=== PATIENT | female | born 1985 | race Caucasian/White ===

== ENCOUNTER 2018-03-21 00:35 | Outpatient (CLI) | payer MEDICARE, MEDICAID, SELFPAY ==
--- NOTE | 2018-03-21 11:28 | DI.MRI_ITS ---
SYMPTOM/DIAGNOSIS: LT SCIATICA, BACK PAIN, M54.32 MRI LUMBAR SPINE: Routine noncontrast examination was performed. There are no priors for comparison. At L5-S1, there is enlarged central disc herniation. It does appear to compress both the right and left S1 nerve roots. There is mild to moderate narrowing of the central spinal canal. There is bilateral narrowing of the neuroforaminal with impingement upon the exiting nerve roots. There is disc desiccation present. At L4-L5 there is disc desiccation and a moderate size central disc herniation. There does appear to be some impingement upon the left L5 nerve root. Degenerative changes of the facets are seen with mild narrowing of the central spinal canal. L3-L4, L2-L3, and L1-L2 show no focal disc herniation, central spinal canal or neuroforaminal stenosis. There is normal signal of the intervertebral discs. Apart from the degenerative end plate signal changes there is normal marrow signal. The conus medullaris has a normal appearance and location. IMPRESSION: 1. Large central disc herniation at L5-S1 compressing both the right and left as one nerve root. 2. Disc herniation at L4-L5 which appears to impinge upon the left L5 nerve root. 3. L4-5 and L5-S1 degenerative disc disease.
== END 2018-03-21 00:55 ==
PROVIDERS: PCP Nurse Practitioner Family; Visit Provider Nurse Practitioner Family
DX: M54.32 Sciatica, left side (principal); M54.5 Low back pain; M51.17 Intervertebral disc disorders with radiculopathy, lumbosacral region
CPT/HCPCS: 72148

== ENCOUNTER 2018-04-20 13:38 | Outpatient (CLI) | payer MEDICARE, MEDICAID, SELFPAY ==
[2018-04-20 13:45] VITALS: BP 128/78; PULSE 105; RESP 24; TEMP 37.1; O2SAT 98
--- NOTE | 2018-04-20 14:34 | DI.RAD_ITS ---
SYMPTOM/DIAGNOSIS: LUMBAR RADICULOPATHY C-ARM: Fluoroscopy Time: 59.3 sec 31.08 mGy Fluoroscopy was provided for guidance of a pain clinic injection. Please see procedure note for details.
--- NOTE | 2018-04-20 14:36 | PDOC.PAIN_ITS ---
Pain Clinic Procedure Note Current Active Problems Problem Status Onset Herniated intervertebral disc of lumbar spine Chronic EPIDURAL STEROID WITH CATHETER INJECTION PROCEDURE NOTE COMMENTS: Patient has a large herniated disc at L5-S1 with left radicular symptoms. Appears to be pressing on the S1 nerve.. YULIYA PEREYRA has been referred to the [facility] for lumbar epidural steroid injection. Patient was greeted by the nurse who verified patients name and . Patient was then taken to the fluoroscopy suite. Patient was interviewed and the medical record reviewed. There were no medical , pharmacologic, radiographic, or other structural contraindications to attempting fluoroscopically guided lumbar epidural steroid injection. Risks and expected side effects as well as potential benefits of the procedure were reviewed and voiced concerns addressed. The patient consent form was signed and witnessed. Standard time-out procedure was performed. Patient was placed in the prone position on the fluoroscopy table and automated blood pressure cuff and pulse oximeter applied. The skin entry point for entering/approaching the epidural space by a {initially at L5-S1. However when I got close to the epidural space patient had too much pain so this was aborted and changed to a caudal approach via the sacral hiatus } and marked. Following thorough chlorhexadine preparation of the skin and draping and 1% lidocaine infiltration of the skin entry point and subcutaneous tissues, a 17 gauge Touhy needle was placed under fluoroscopic guidance and with loss of resistance technique into the epidural space. Needle tip placement and depth were aided and confirmed by fluoroscopy. There was no paresthesia or return of blood or CSF through the needle. An Arrow cath was thread to the {L5 } and 1 cc's of Omnipaque 240 was injected with clear epidural spread confirmed with fluoroscopy. 80mg depomedrol was injected. There was not any unusual discomfort expressed. Vital signs were stable throughout the procedure and were as recorded in nursing records. Follow up plans and appointments were discussed.Post procedure instruction was given as documented in nursing records and having met discharge criteria and was discharged from the [facility]. COMMENTS: Patient will follow-up as needed. Consider repeating or consider transforaminal on the left at S1 and/or L5. Also consider using sedation if it needs to be repeated
[2018-04-20] MEDS: Omnipaque 240 MG/ML 50 ML BTL IJ (14:42)
[2018-04-20] MEDS: methylPREDNISolone ACETATE 40 MG/ML VIAL IJ (14:43)
[2018-04-20 14:44] VITALS: BP 143/78; PULSE 108; RESP 15; O2SAT 97
--- NOTE | 2018-04-20 15:39 | PDOC.PAIN ---
Pain Clinic Procedure Note Current Active Problems Problem Status Onset Herniated intervertebral disc of lumbar spine Chronic
== END 2018-04-20 13:58 ==
PROVIDERS: PCP Nurse Practitioner Family; Visit Provider Anesthesiology Pain Medicine
DX: M51.26 Other intervertebral disc displacement, lumbar region (principal); G89.29 Other chronic pain
CPT/HCPCS: 62323; 72100; J1030; Q9967

== ENCOUNTER 2018-07-19 12:47 | Outpatient (CLI) | payer MEDICARE, MEDICAID, SELFPAY ==
--- NOTE | 2018-07-19 06:00 | DI.RAD_ITS ---
SYMPTOM/DIAGNOSIS: LUMBAR RADICULOPATHY, EPIDURAL LUMBAR STEROID INJECTION C-ARM: Fluoroscopy Time: 21.8 seconds Fluoroscopy was provided for guidance with pain clinic spinal injection. Please see procedure note for details.
[2018-07-19 12:58] VITALS: BP 115/75; PULSE 95; RESP 22; TEMP 37.2; O2SAT 97
--- NOTE | 2018-07-19 13:47 | PDOC.PAIN ---
Pain Clinic Procedure Note Current Active Problems Problem Status Onset Lumbar radiculitis Acute CANDAL EPIDURAL STEROID WITH CATHETER INJECTION PROCEDURE NOTE COMMENTS: She has done better with the caudal approach in the past and that is why we used this approach. No prior lumbar surgery. YULIYA PEREYRA has been referred to the [facility] for lumbar epidural steroid injection. Patient was greeted by the nurse who verified patients name and . Patient was then taken to the fluoroscopy suite. Patient was interviewed and the medical record reviewed. There were no medical, pharmacologic, radiographic, or other structural contraindications to attempting fluoroscopically guided lumbar epidural steroid injection. Risks and expected side effects as well as potential benefits of the procedure were reviewed and voiced concerns addressed. The patient consent form was signed and witnessed. Standard time-out procedure was performed. Patient was placed in the prone position on the fluoroscopy table and automated blood pressure cuff and pulse oximeter applied. The skin entry point for entering/approaching the epidural space and marked. Following thorough chlorhexadine preparation of the skin and draping and 1% lidocaine infiltration of the skin entry point and subcutaneous tissues, a 17 gauge Touhy needle was placed under fluoroscopic guidance and with loss of resistance technique into the epidural space. Needle tip placement and depth were aided and confirmed by fluoroscopy. There was no paresthesia or return of blood or CSF through the needle. An Arrow cath was thread to the L4-L5 level and 1 cc's of Omnipaque 240 was injected with clear epidural spread confirmed with fluoroscopy. 80mg depomedrol was injected. There was not any unusual discomfort expressed. Vital signs were stable throughout the procedure and were as recorded in nursing records. Follow up plans and appointments were discussed.Post procedure instruction was given as documented in nursing records and having met discharge criteria and was discharged from the [facility]. COMMENTS: This procedure can be completed up to 3 times per 12 months if it is found to be effective.
[2018-07-19 13:50] VITALS: BP 138/74; PULSE 102; RESP 20; O2SAT 98
[2018-07-19] MEDS: methylPREDNISolone ACETATE 80 MG/ML VIAL IJ (13:52)
[2018-07-19] MEDS: Omnipaque 240 MG/ML 50 ML BTL IJ (13:52)
== END 2018-07-19 13:07 ==
PROVIDERS: PCP Nurse Practitioner Family; Visit Provider Preventive Medicine Occupational Medicine
DX: M54.16 Radiculopathy, lumbar region (principal)
CPT/HCPCS: 62323; 72100; J1040; Q9967

== ENCOUNTER 2019-06-16 09:05 | Emergency (ER) | payer MEDICARE, MEDICAID, SELFPAY ==
[2019-06-16 09:10] VITALS: BP 128/99; PULSE 87; RESP 16; TEMP 36.6; O2SAT 98
--- NOTE | 2019-06-16 09:14 | W.ED.GENAD ---
Discharge Plan Disposition Patient Disposition: HOME Condition: Stable Discharge Details Chief Complaint: EarProblem Clinical Impression: Acute otitis media with effusion of left ear, Tympanic membrane perforation Primary Care Provider: Elsie Ponce ED Provider: Kandi Albarado Home Meds and New Rx's Prescriptions: New amoxicillin 500 mg tablet 500 mg PO QID 7 Days Qty: 28 RF: 0 Continued Collagen Plus Vitamin C 125-740 mg capsule 1 cap PO DAILY RF: 0 Centrum Women 18-400 mg-mcg tablet 1 tab PO DAILY RF: 0 omega-3 fatty acids [Fish Oil Concentrate] 1,000 mg capsule 1,000 mg PO DAILY RF: 0 bupropion HCl [Wellbutrin XL] 300 mg tablet extended release 24 hr 300 mg PO QAM RF: 0 cyclobenzaprine 10 mg tablet 10 mg PO HS PRNRF: 0 nicotine 21 mg/24 hr patch 24 hour 1 patch TD DAILY RF: 0 lorazepam 0.5 mg tablet 0.5 mg PO DAILY PRN (Reason: panic attack(s)) RF: 0 albuterol sulfate [ProAir HFA] 90 mcg/actuation HFA aerosol inhaler 2 puff IH .COMPLEX PRNRF: 0 dextroamphetamine-amphetamine 20 mg capsule,extended release 24hr 20 mg PO DAILY RF: 0 metformin [Glucophage] 850 MG tablet 850 mg PO Q12H Qty: 180 RF: 4 acetaminophen [Tylenol] 325 MG tablet 650 mg PO PRN RF: 0 ibuprofen 200 MG capsule 800 mg PO PRN RF: 0 Discharge Instructions Instructions: Ruptured Eardrum (ED), Otitis Media (ED) Additional Instructions: Alternate tylenol and motrin as needed and directed for pain. Take the antibiotics until finished. Follow-up with your primary care doctor in 1 week. Follow-up with ENT for further evaluation as needed. Return to the emergency department with any worsening or new concerning symptoms. Referrals: Rudy Salazar DO [OSTEOPATHIC DOCTOR] - Discharge Data Discharge Physician: Kandi Albarado Medical Decision Making 34-year-old female presents with left ear pain for the past 5 days, slightly improved since her left eardrum popped 2 days ago. Since then she has had yellow bloody discharge from her left ear. She still admits to intermittent sharp pain and hearing loss. She denies any known fever, sore throat. She has been taking ibuprofen with some relief. She has a history of bilateral TM perforations and infections and has seen ENT in the past. She has an old scarred perforation to her right TM without signs of acute infection. Her left external ear is normal to inspection and palpation. There is yellowish discharge within the left ear canal as well as yellowish discoloration of the left TM with minimal erythema and perforation in center. Appears consistent with otitis media with effusion status post perforation. A prescription for amoxicillin given. She was advised to follow-up with her primary care doctor for reevaluation and with ENT as needed. She states she has seen Dr. Salazar as needed. Usual and customary return precautions given prior to discharge. Medical Records Medical records reviewed: Yes I reviewed the patient's medical records. HPI General Mode of arrival: ambulatory. Date/Time Provider Initiated Documentation: 06/16/19 09:12. Limitations to Documentation: no limitations. Information obtained by: patient. History of Present Illness 34 year old F presents to the emergency department with the chief complaint of L ear pain , described as moderate, Quality is described as aching and sharp, and is localized to the head. Patient reports no radiation. Patient started experiencing this day(s) (5) and it has been constant. Medication improves symptom(s), (some relief with ibuprofen) No exacerbating factors reported . Patient notes denies fever/chills and loss of appetite. Related Data Home Medications Medication Instructions Recorded Confirmed acetaminophen [Tylenol] 650 mg PO PRN 09/01/13 06/16/19 ibuprofen 800 mg PO PRN 09/01/13 06/16/19 metformin [Glucophage] 850 mg PO Q12H #180 tab-cap 05/19/17 06/16/19 albuterol sulfate 90 mcg/actuation 2 puff IH .COMPLEX PRN gm 04/05/18 06/16/19 aerosol inhaler bupropion HCl 300 mg 24 hr tablet, 300 mg PO QAM 04/05/18 06/16/19 extended release cyclobenzaprine 10 mg tablet 10 mg PO HS PRN tab 04/05/18 06/16/19 dextroamphetamine-amphetamine ER 20 mg PO DAILY 04/05/18 06/16/19 20 mg 24hr capsule,extend release lorazepam 0.5 mg tablet 0.5 mg PO DAILY PRN 04/05/18 06/16/19 nicotine 21 mg/24 hr daily 1 patch TD DAILY 04/05/18 07/19/18 transdermal patch ascorbic acid 125 mg-collagen, 1 cap PO DAILY cap 04/13/18 06/16/19 hydrolyzed 740 mg capsule multivitamin-ferrous 1 tab PO DAILY 04/13/18 06/16/19 fumarate-folic acid 18 mg-400 mcg tablet omega-3 fatty acids 1,000 mg 1,000 mg PO DAILY 04/13/18 06/16/19 capsule amoxicillin 500 mg PO QID 7 Days #28 tab 06/16/19 Previous Rx's Medication Instructions Recorded metformin [Glucophage] 850 mg PO Q12H #180 tab-cap 05/19/17 amoxicillin 500 mg PO QID 7 Days #28 tab 06/16/19 Allergies Allergy/AdvReac Type Severity Reaction Status Date / Time lithium Allergy Intermediate Skin Rash Unverified 06/16/19 09:14 General Stated Complaint: EarProblem GLENN: 5 Review of Systems All systems reviewed & are unremarkable except as noted in HPI and below Constitutional Constitutional: Reports as per HPI, Denies chills and Denies fever(s) Eyes Eyes: Denies blurry vision ENT Ears, Nose, Mouth, and Throat: Denies dizziness, Reports otalgia (L side), Denies sore throat and Denies throat swelling Cardiovascular Cardiovascular: Denies chest pain and Denies dyspnea Respiratory Respiratory: Denies cough and Denies dyspnea Gastrointestinal Gastrointestinal: Denies abdominal pain, Denies diarrhea and Denies vomiting Genitourinary Genitourinary: Denies hematuria and Denies dysuria Musculoskeletal Musculoskeletal: Denies back pain and Denies numbness Integumentary/Breasts Skin/Breast: Denies lesions and Denies rash Neurologic Neurologic: Denies dizziness, Denies focal weakness and Denies numbness Allergic/Immunologic Allergic/Immunologic: Denies throat swelling [facility] Medical History Anxiety Attention deficit hyperactivity disorder Depression (Chronic) Elevated LFTs (Acute) Endometriosis (Chronic) Fatigue (Acute) Fatty liver Kidney stone (~2010) Mood disorder Obesity (Chronic) Polycystic ovarian syndrome (Acute) Sciatica, left side (Acute) Sleep disturbance (Acute) Tobacco dependence (Acute) Surgical History section (12/31/04) section (11/24/10) Diagnostic Laproscopy (03/01/11) H/O: hysterectomy (Chronic) Family History Other Attention deficit hyperactivity disorder Diabetes Social History Smoking/Tobacco Use Status: Current every day Alcohol Intake: never Drug use: Never Substance use type: does not use Housing: house Number of Children: 2 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 What type of physical activity do you participate in: none and additional Details: cannot walk more than the trips to the bus stop for kids Do you feel safe at home: Yes Do you feel safe in your relationship?: Yes Exam Const General: cooperative, healthy appearing and no acute distress HENMT Head: normal to inspection Ears: hearing grossly normal bilaterally and external ears normal (no pain with pulling of auricle or palpation of tragus) General nose exam: external nose normal Mouth: oral mucosae normal Throat: posterior oropharynx normal and uvula midline Other: Right ear: TM with center hole consistent with perforation. No signs of acute infection. Left ear: No tenderness palpation of tragus or pain with pulling on auricle. Yellow-pink discharge noted on cotton ball within left ear. Left ear canal noted with clear yellowish drainage. TM with center hole noted with minimal erythema, most of the TM appears yellowish in color. Difficult to view entire TM due to fluid. Eyes General: appearance normal, both eyes and all related structures Neck Neck: normal visual inspection, full ROM, no lymphadenopathy, no meningeal signs, trachea midline, supple, no anterior neck swelling and No submandibular swelling Resp Effort & Inspection: normal respiratory effort and able to speak in complete sentences Cardio Rate: regular rate Skin General skin exam: no rashes or lesions noted Neuro General: alert, awake and oriented x3 Motor: muscle tone normal throughout Extrem General: normal to inspection and full ROM Psych Appearance: grossly normal Affect: normal affect Course Vital Signs Vital signs: Vital Signs Temperature 97.9 F 06/16/19 09:10 Pulse 87 06/16/19 09:10 Respiratory Rate 16 06/16/19 09:10 Blood Pressure 128/99 H 06/16/19 09:10 Pulse Oximetry 98 06/16/19 09:10 Temperature 97.9 F 06/16/19 09:10 Temperature Source Skin 06/16/19 09:10 Pulse 87 06/16/19 09:10 Respiratory Rate 16 06/16/19 09:10 Respiratory Effort Non-Labored 06/16/19 09:12 Blood Pressure 128/99 H 06/16/19 09:10 Blood Pressure Position Sitting 06/16/19 09:10 Pulse Oximetry 98 06/16/19 09:10 Oxygen Delivery Method Room Air 06/16/19 09:10 Oxygen Flow Rate 0 06/16/19 09:10 Pain Level 2 06/16/19 09:12
[2019-06-16 09:31] VITALS: BP 128/99; PULSE 87; RESP 16; TEMP 36.6; O2SAT 98
== END 2019-06-16 09:33 | disposition home or self-care (01) ==
LOC: ER 09:24
PROVIDERS: Emergency Provider Physician Assistant; PCP Nurse Practitioner Family
DX: H65.192 Other acute nonsuppurative otitis media, left ear (principal); H72.02 Central perforation of tympanic membrane, left ear
CPT/HCPCS: 99283

== ENCOUNTER 2019-07-03 22:28 | Outpatient (REF) | payer MEDICARE, MEDICAID, SELFPAY ==
[2019-07-03 20:26] LABS: ALT 144 U/L (14-59); AST 71 U/L (15-37); Albumin 4.1 g/dL (3.4-5.0); Alkaline Phosphatase 70 U/L (46-116); Anion Gap 13.4 mmol/L (3-11); BUN 5 mg/dL (7-18); Bilirubin, Total 0.3 mg/dL (0.2-1.0); CO2 23.6 mmol/L (21.0-32.0); CREATININE 0.71 mg/dL (0.55-1.02); Calcium 8.9 mg/dL (8.5-10.1); Chloride 106 mmol/L (98-107); Glucose 87 mg/dL (74-106); Potassium 4.2 mmol/L (3.5-5.1); Sodium 143 mmol/L (136-145); TSH (W/Ref FT4) 2.31 uIU/mL (0.36-3.74); Total Protein 7.1 g/dL (6.4-8.2)
== END 2019-07-03 22:48 ==
LOC: NCHCN 22:28
PROVIDERS: PCP Nurse Practitioner Family; Visit Provider Nurse Practitioner Family
DX: R79.89 Other specified abnormal findings of blood chemistry (principal); Z98.41 Cataract extraction status, right eye; E11.9 Type 2 diabetes mellitus without complications
CPT/HCPCS: 80053; 84443

== ENCOUNTER 2020-08-04 17:08 | Emergency (ER) | payer MEDICARE, MEDICAID, SELFPAY ==
[2020-08-04 17:16] VITALS: BP 119/85; PULSE 92; RESP 18; TEMP 36; O2SAT 98
[2020-08-04 17:17] VITALS: BP 119/85; PULSE 92; RESP 18; TEMP 36; O2SAT 98
--- NOTE | 2020-08-04 17:32 | ED.GENADUL_ITS ---
Discharge Plan Disposition Patient Disposition: HOME Condition: Improving Discharge Details Clinical Impression: Odontalgia Primary Care Provider: Elsie Ponce ED Provider: Georges Fountain Home Meds and New Rx's Prescriptions: New penicillin V potassium 500 mg tablet 500 mg PO TID 10 Days Qty: 30 RF: 0 Continued Collagen Plus Vitamin C 125-740 mg capsule 1 cap PO DAILY RF: 0 Centrum Women 18-400 mg-mcg tablet 1 tab PO DAILY RF: 0 omega-3 fatty acids [Fish Oil Concentrate] 1,000 mg capsule 1,000 mg PO DAILY RF: 0 bupropion HCl [Wellbutrin XL] 300 mg tablet extended release 24 hr 300 mg PO QAM RF: 0 cyclobenzaprine 10 mg tablet 10 mg PO HS PRNRF: 0 nicotine 21 mg/24 hr patch 24 hour 1 patch TD DAILY RF: 0 lorazepam 0.5 mg tablet 0.5 mg PO DAILY PRN (Reason: panic attack(s)) RF: 0 albuterol sulfate [ProAir HFA] 90 mcg/actuation HFA aerosol inhaler 2 puff IH .COMPLEX PRNRF: 0 dextroamphetamine-amphetamine 20 mg capsule,extended release 24hr 20 mg PO DAILY RF: 0 metformin [Glucophage] 850 MG tablet 850 mg PO Q12H Qty: 180 RF: 4 acetaminophen [Tylenol] 325 MG tablet 650 mg PO PRN RF: 0 ibuprofen 200 MG capsule 800 mg PO PRN RF: 0 Discharge Instructions Instructions: Toothache (ED) Additional Instructions: Please make a follow-up appointment with [facility]. Return for increased swelling of the face, difficulty breathing or swallowing, or any other acute concerns. May use dental wax as needed for comfort. Take penicillin as prescribed. Tylenol and/or ibuprofen as needed for pain. Medical Decision Making 35-year-old female with odontalgia. Her exam reveals numerous dental caries and tenderness overlying tooth #28. Consistent with developing apical infection. She needs to follow-up with hard with dental. I will place her on a course of penicillin. She is stable for outpatient management and understands indications to seek reevaluation in the emergency department. HPI General Mode of arrival: ambulatory . Date/Time Provider Initiated Documentation: 08/04/20 17:08 . Limitations to Documentation: no limitations . Information obtained by: patient . History of Present Illness 35 year old F presents to the emergency department with the chief complaint of Right lower dental pain, described as moderate, Quality is described as dull, and is localized to the mouth and right. Patient reports no radiation. Patient started experiencing this hour(s) and it has been constant. No relieving factors improve symptom(s), No exacerbating factors reported . Patient did receive the following treatments prior to arrival, none Related Data Home Medications Medication Instructions Recorded Confirmed acetaminophen [Tylenol] 650 mg PO PRN 09/01/13 08/04/20 ibuprofen 800 mg PO PRN 09/01/13 08/04/20 metformin [Glucophage] 850 mg PO Q12H #180 tab-cap 05/19/17 08/04/20 albuterol sulfate 90 mcg/actuation 2 puff IH .COMPLEX PRN gm 04/05/18 08/04/20 aerosol inhaler bupropion HCl 300 mg 24 hr tablet, 300 mg PO QAM 04/05/18 08/04/20 extended release cyclobenzaprine 10 mg tablet 10 mg PO HS PRN tab 04/05/18 08/04/20 dextroamphetamine-amphetamine ER 20 mg PO DAILY 04/05/18 08/04/20 20 mg 24hr capsule,extend release lorazepam 0.5 mg tablet 0.5 mg PO DAILY PRN 04/05/18 08/04/20 nicotine 21 mg/24 hr daily 1 patch TD DAILY 04/05/18 08/04/20 transdermal patch ascorbic acid 125 mg-collagen, 1 cap PO DAILY cap 04/13/18 08/04/20 hydrolyzed 740 mg capsule multivitamin-ferrous 1 tab PO DAILY 04/13/18 08/04/20 fumarate-folic acid 18 mg-400 mcg tablet omega-3 fatty acids 1,000 mg 1,000 mg PO DAILY 04/13/18 08/04/20 capsule penicillin V potassium 500 mg PO TID 10 Days #30 tab 08/04/20 Previous Rx's Medication Instructions Recorded metformin [Glucophage] 850 mg PO Q12H #180 tab-cap 05/19/17 penicillin V potassium 500 mg PO TID 10 Days #30 tab 08/04/20 Allergies Allergy/AdvReac Type Severity Reaction Status Date / Time lithium Allergy Intermediate Skin Rash Unverified 06/16/19 09:14 General Stated Complaint: DentalOral GLENN: 4 Review of Systems Narrative: No change to voice, normal swallowing, 4 systems reviewed and otherwise negative [facility] Medical History (Updated 08/04/20 @ 17:35 by Georges Fountain MD) Anxiety Attention deficit hyperactivity disorder Depression Elevated LFTs Endometriosis Fatigue Fatty liver Kidney stone (~2010) Mood disorder Obesity Polycystic ovarian syndrome Sciatica, left side Sleep disturbance Tobacco dependence Surgical History section (12/31/04) section (11/24/10) Diagnostic Laproscopy (03/01/11) H/O: hysterectomy Family History Other Attention deficit hyperactivity disorder Diabetes Social History Smoking/Tobacco Use Status: Current every day Smoking risk assessment performed?: Yes Alcohol Intake: never Drug use: Never Substance use type: does not use Housing: house Number of Children: 2 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 Pleasant, well groomed, interactive. HEAD: Normocephalic, atraumatic ENT: Mucous membranes moist, oropharynx with missing and partially broken teeth with dental caries. Tender right lower premolar approximately tooth #28, External ear exam unremarkable EYES: PERRL, EOMI NECK: Full ROM, no LIDA, no menigismus CHEST/RESP: Nontender, clear to auscultation bilateral, no wheeze/rhonchi/rales CARDIOVASCULAR: RRR, no murmur, rub rosi. 2+ Rad pulse bilateral Neuro: Grossly normal neurologic exam, conversant, interactive. Psych: Speech fluent, thoughts congruent, affect normal Course Vital Signs Vital signs: Vital Signs Temperature 36 C L 08/04/20 17:16 Pulse 92 H 08/04/20 17:16 Respiratory Rate 18 08/04/20 17:16 Blood Pressure 119/85 08/04/20 17:16 Pulse Oximetry 98 08/04/20 17:16 Temperature 36 C L 08/04/20 17:17 Temperature Source Temporal Artery Scan 08/04/20 17:17 Pulse 92 H 08/04/20 17:17 Respiratory Rate 18 08/04/20 17:17 Respiratory Effort Non-Labored 08/04/20 17:21 Blood Pressure 119/85 08/04/20 17:17 Pulse Oximetry 98 08/04/20 17:17 Oxygen Delivery Method Room Air 08/04/20 17:17 Oxygen Flow Rate 0 08/04/20 17:17 Pain Level 5 08/04/20 17:22
[2020-08-04] MEDS: Penicillin V POTASSIUM 500 MG TAB, 4 TABS/BTL PO (17:42)
== END 2020-08-04 17:40 | disposition home or self-care (01) ==
PROVIDERS: Emergency Provider Emergency Medicine; PCP Nurse Practitioner Family
DX: R68.84 Jaw pain (principal)
CPT/HCPCS: 99283

== ENCOUNTER 2021-12-25 15:34 | Outpatient (REF) | payer MEDICARE, MEDICAID, SELFPAY ==
[2021-12-25 15:12] LABS: ALT 102 U/L (14-59); AST 49 U/L (15-37); Albumin 4.1 g/dL (3.4-5.0); Alkaline Phosphatase 62 U/L (46-116); Anion Gap 9.7 mmol/L (3-11); BUN 8 mg/dL (7-18); Bilirubin, Total 0.3 mg/dL (0.2-1.0); CO2 27.3 mmol/L (21.0-32.0); CREATININE 0.7 mg/dL (0.55-1.02); Calcium 8.8 mg/dL (8.5-10.1); Calculated LDL 159 mg/dL (<100); Chloride 106 mmol/L (98-107); Cholesterol 222 mg/dL (<200); Glucose 99 mg/dL (74-106); HDL Cholesterol 43 mg/dL (40-60); Potassium 3.7 mmol/L (3.5-5.1); Sodium 143 mmol/L (136-145); Total Protein 7.4 g/dL (6.4-8.2); Triglyceride 102 mg/dL (<150)
== END 2021-12-25 15:35 | disposition home or self-care (01) ==
LOC: NCHCN 15:34
PROVIDERS: PCP Nurse Practitioner Family; Visit Provider Nurse Practitioner Family
DX: E78.5 Hyperlipidemia, unspecified (principal); R79.89 Other specified abnormal findings of blood chemistry
CPT/HCPCS: 80053; 80061

== ENCOUNTER → 2022-03-12 02:36 | Outpatient (CLI) | payer MEDICARE, MEDICAID, SELFPAY ==
--- NOTE | 2022-03-12 09:00 | ETT_ITS ---
APPROVED REPORT Exam: Exercise Treadmill Patient Location: Out-Patient Room/Bed: Stress Nurse: Marlene Rogers RN Ordering Provider:KAITY BOWMAN, Contact Number: [phone] BMI: 37.49 Baseline Rhythm: Sinus Rhythm Indications: Exertional chest pain. Medical History Medical History: pre-diabetes. Lumbar disc herniation. non etoh fatty liver. depression. Degenerative disc disease. Hyperlipidemia. ADHD. Hepatic steatosis. anxiety. mood disorder. endometriosis. Obesit y. Cardiac Medications: None Allergies: [place] Cardiac Risk Factors: Family hx. Smoker. HLD. Obesity. Previous Cardiac Procedures: None Pretest Chest Pain Characteristics: No chest pain Exercise History: Physically active Lung Sounds: Clear to auscultation Heart Sounds: Regular Stress Test Details Test: Exercise stress testing was performed using a Alfonso protocol. Rest Stress HR Resting HR Supine: 82 bpm Max Heart Rate (APMHR): 186 bpm Resting HR Standin bpm Target HR (85% APMHR): 158 bpm Max HR Achieved: 174 bpm % of APMHR: 93 Recovery HR: 97 bpm HR response to stress: Normal HR response to stress BP Resting BP Supine: 102/70 mmHg Resting BP Standin/66 mmHg Max BP: 138/58 mmHg Recovery BP: 119/70 mmHg BP response to stress: Normal blood pressure response to stress. ECG Resting ECG: Sinus Rhythm Ectopy: None Stress ECG: Sinus Tachycardia ST Change: No significant ST segment changes noted Arrhythmia: VPC's Recovery ECG: Sinus Rhythm Recovery ST Change: No significant ST segment changes noted Recovery Arrhythmia: None Clinical Reason for Termination: Dyspnea, Fatigue Stress Symptoms: Dyspnea, Leg Fatigue, Chest pain Exercise duration: 9 min59 sec Highest Stage Reached: Stage 4: 4.2 mph at 16% grade. Exercise capacity: 11.80 METs Scale: Active Rate Pressure Product: [id number] Stress ECG Conclusion 1. Resting electrocardiogram was within normal limits 2. Patient exercised on the Alfonso protocol and completed a workload of 11.8 METS 3. Normal heart rate and blood pressure response to exercise 4. Patient achieved 93% of predicted heart rate for age 5. There was no electrocardiographic evidence of myocardial ischemia 6. There were no significant dysrhythmias 7. Gibbons treadmill score is +7 which is low risk Stress Test Summary STAGE Time (mins) Speed (mph) Grade (%) HR BP SpO2 SYMPTOMS METS Supine 82 102/70 97 Standing 92 96/66 97 1 3 1.7 10 113 102/70 4.5 2 6 2.5 12 126 112/64 7 3 9 3.4 14 146 120/68 10 4 12 4.2 16 160 13 1 min recovery 154 112/60 4 out of 10 left chest pain 3 min recovery 115 138/58 96 6 min recovery 97 119/70 96 Chest pain subsided.
== END ==
PROVIDERS: PCP Nurse Practitioner Family; Visit Provider Nurse Practitioner Family
DX: R07.89 Other chest pain (principal)
CPT/HCPCS: 93016; 93018; 93017

== ENCOUNTER 2022-07-24 00:47 | Outpatient (CLI) | payer MEDICARE, MEDICAID, SELFPAY ==
--- NOTE | 2022-07-24 | DI.MRI_ITS ---
Exam(s) MR LUMBAR SPINE WO EXAM: MR LUMBAR SPINE WO CLINICAL HISTORY: HERNIATED LUMBAR DISK W/ RADICULOPATHY, M51.16. TECHNIQUE: Multiplanar multisequence MRI of the Lumbar spine was performed. COMPARISON: MR MR lumbar spine wo from 03/21/2018 FINDINGS: Bones: The last intervertebral disc space is designated the L5/S1 level for the numbering purpose of this examination. The vertebral body heights are well maintained. Alignment is satisfactory. There are degenerative endplate signal changes at L4-5 and L5-S1. Cord: The conus tip ends at the T12-L1 level. It is of normal size and signal intensity. T12-L1: No disc herniations or bulges are present. No central spinal canal or neural foraminal stenos is. L1-2: No disc herniations or bulges are present. No central spinal canal or neural foraminal stenosis . L2-3: No disc herniations or bulges are present. No central spinal canal or neural foraminal stenosis . L3-4: No disc herniations or bulges are present. No central spinal canal or neural foraminal stenosis . L4-5: There is a slightly eccentric to the left disc herniation at L4-L5. There are degenerative chacorta nges of the facets. There is mild narrowing of the central spinal canal. There does appear to be mi ld left lateral recess stenosis compressing the left L5 nerve root. No significant neural foraminal stenosis is present. L5-S1: There is again seen a central disc herniation at L5-S1. It is decreased in size compared to t he prior examination. No central spinal canal stenosis is seen. There is moderate bilateral neural foraminal stenosis. Degenerative changes of the facets are present. Soft tissues: The visualized SI joints and sacrum are well maintained. The paraspinal soft tissues ar e unremarkable. IMPRESSION: 1. There has been interval decrease in size of the L5-S1 central disc herniation. No significant jensen tral spinal canal stenosis is seen. 2. Small left paracentral disc herniation at L4-L5. There does appear to be mild left lateral recess stenosis with compression of the left L5 nerve root. 3. Degenerative changes at L4-5 and L5-S1. The findings do result in moderate bilateral neural aleisha inal stenosis at L5-S1. DATA REPOSITORY:
== END 2022-07-24 01:07 ==
LOC: DI 00:47
PROVIDERS: PCP Nurse Practitioner Family; Visit Provider Nurse Practitioner Family
DX: M51.16 Intervertebral disc disorders with radiculopathy, lumbar region (principal); M51.27 Other intervertebral disc displacement, lumbosacral region; M47.817 Spondylosis without myelopathy or radiculopathy, lumbosacral region; M48.07 Spinal stenosis, lumbosacral region
CPT/HCPCS: 72148

== ENCOUNTER 2023-01-12 13:20 | Outpatient (REF) | payer MEDICARE, MEDICAID, SELFPAY ==
[2023-01-12 16:06] LABS: Abs Immature Grans 0.02 10^3/uL (0.0-0.06); Absolute Basophil Count 0.07 10^3/uL (0.0-0.2); Absolute Eosinophil Count 0.15 10^3/uL (0.0-0.7); Absolute Lymphocyte Count 2.93 10^3/uL (1.2-3.4); Absolute Monocyte Count 0.57 10^3/uL (0.1-0.8); Absolute Neutrophil Count 3.73 10^3/uL (1.2-6.7); Basophils % 0.9; HCT 41.8 % (36.0-46.0); HGB 14.4 g/dL (11.2-15.7); Immature Grans % 0.3; Lymphocytes % 39.2; MCH 31.3 pg (27.0-33.0); MCHC 34.4 % (32.0-36.0); MCV 91 fL (80-95); Monocytes % 7.6; Platelet Count 354 10^3/uL (130-400); RDW 12.4 % (11.7-14.6); RDW-SD 41.1 fL; WBC 7.47 10^3/uL (4.4-10.8)
[2023-01-12 16:39] LABS: Anion Gap 11.9 mmol/L (3-11); BUN 4 mg/dL (7-18); CO2 22.1 mmol/L (21.0-32.0); CREATININE 0.7 mg/dL (0.55-1.02); Chloride 104 mmol/L (98-107); Estimated GFR 115.59 (mL/min/1.73m2); Glucose 91 mg/dL (74-106); Potassium 3.6 mmol/L (3.5-5.1); Sodium 138 mmol/L (136-145)
== END 2023-01-12 13:21 | disposition home or self-care (01) ==
LOC: NCHCN 13:20
PROVIDERS: PCP Nurse Practitioner Family; Visit Provider Nurse Practitioner Family
DX: Z01.818 Encounter for other preprocedural examination (principal)
CPT/HCPCS: 80048; 85025

== ENCOUNTER 2023-04-27 15:33 | Outpatient (REF) | payer MEDICARE, MEDICAID, SELFPAY ==
[2023-04-27 19:45] LABS: Hemoglobin A1C 5.5 % (<5.7)
[2023-04-27 19:53] LABS: ALT 131 U/L (14-59); AST 80 U/L (15-37); Alkaline Phosphatase 80 U/L (46-116); Anion Gap 10.6 mmol/L (3-11); BUN 5 mg/dL (7-18); Bilirubin, Total 0.4 mg/dL (0.2-1.0); CO2 28.4 mmol/L (21.0-32.0); CREATININE 0.7 mg/dL (0.55-1.02); Calcium 9.3 mg/dL (8.5-10.1); Calculated LDL 151 mg/dL (<100); Chloride 102 mmol/L (98-107); Cholesterol 227 mg/dL (<200); Estimated GFR 115.59 (mL/min/1.73m2); Glucose 93 mg/dL (74-106); HDL Cholesterol 53 mg/dL (40-60); Potassium 3.7 mmol/L (3.5-5.1); Sodium 141 mmol/L (136-145); TSH 2.55 uIU/mL (0.36-3.74); Total Protein 7.3 g/dL (6.4-8.2); Triglyceride 117 mg/dL (<150)
[2023-04-27 20:50] LABS: FREE T4 0.86 ng/dL (0.76-1.46)
== END 2023-04-27 15:34 | disposition home or self-care (01) ==
LOC: NCHCN 15:33
PROVIDERS: PCP Nurse Practitioner Family; Visit Provider Nurse Practitioner Family
DX: Z68.41 Body mass index [BMI] 40.0-44.9, adult (principal); E66.9 Obesity, unspecified
CPT/HCPCS: 80053; 80061; 83036; 84439; 84443

== ENCOUNTER 2023-09-30 05:29 | Outpatient (CLI) | payer MEDICARE, MEDICAID, SELFPAY ==
--- NOTE | 2023-10-05 12:23 | W.NUTRFU ---
Date of service: 09/30/23 Time of Service: 13:00 Nutrition Note NOTE: received nutrition referral for Darshana regarding increased BMI and comes in for weight mgt guidance. Darshana takes a multivitamin but admits she is not consistent. Upon interview her eating pattern is not consistent. She relates she struggles with time mgt barriers. She is busy at home living with fiance of 14 years, 2 children and her niece. Dinner is the family meal - outside of this she is pretty indepenent at her meals and snacks. She currently has not idea framework to work towards and shares that she doesn't feel she eats often or too much - often skips breakfast and eats only 1 large meal. She has a history of PCOS which acts as a barrier and suspected ARMAND which would also increase difficult with wt loss. We reveiwed how habits should be focused on first - no need to get mediculous with tracking kcals and such at this time. She was given advice today to work on tackling the lowest hanging fruit which would be getting good quality sleep, trying to manage stress, having scheduled/targeted activity and exercise (she does not exercise currently), and working on some needed diet changes, considering the following as priorities: * creating a framework for what the ideal day of eating looks like (suggested at least 3 meals and 0-2 planned snacks with goal to stop eating after dinner meal) *avoiding skipping breakfast - eat more during the day and less at night *track and keep added sugar amounts to <30 g per day on average *track and keep fiber at at least 25g most days *swap some animal protein for plant protein from beans/legumes/nuts and seeds *choose [id number] starches and keep total carbs to no more than 150grams (this includes fiber goal of 25 or more grams) *work on drinking 2L water regularly and avoid any sweetened beverages and/or juice for accountability and extra support Darshana asked to ryann follow up - we will talk about the above goals at this time on 11/03 Time Spent in Nutritional Counseling and Treatment: 30 minutes
== END 2023-09-30 05:30 | disposition home or self-care (01) ==
PROVIDERS: PCP Nurse Practitioner Family; Visit Provider Dietitian, Registered
DX: Z68.41 Body mass index [BMI] 40.0-44.9, adult (principal); E66.9 Obesity, unspecified
CPT/HCPCS: 00123; 97802

== ENCOUNTER 2023-12-09 11:08 | Outpatient (REF) | payer MEDICARE, MEDICAID, SELFPAY ==
[2023-12-09 18:51] LABS: Hemoglobin A1C 5.6 % (<5.7)
[2023-12-09 19:00] LABS: ALT 126 U/L (14-59); AST 69 U/L (15-37); Albumin 3.7 g/dL (3.4-5.0); Alkaline Phosphatase 67 U/L (46-116); Anion Gap 10.6 mmol/L (3-11); BUN 8 mg/dL (7-18); Bilirubin, Total 0.32 mg/dL (0.2-1.0); CO2 24.4 mmol/L (21.0-32.0); CREATININE 0.7 mg/dL (0.55-1.02); Calcium 8.9 mg/dL (8.5-10.1); Chloride 107 mmol/L (98-107); Estimated GFR 114.88 (mL/min/1.73m2); Glucose 97 mg/dL (74-106); Potassium 4.1 mmol/L (3.5-5.1); Sodium 142 mmol/L (136-145); TSH (W/Ref FT4) 0.85 uIU/mL (0.36-3.74); Total Protein 7.1 g/dL (6.4-8.2)
== END 2023-12-09 11:09 | disposition home or self-care (01) ==
LOC: NCHCN 11:08
PROVIDERS: PCP Nurse Practitioner Family; Visit Provider Nurse Practitioner Family
DX: Z68.41 Body mass index [BMI] 40.0-44.9, adult (principal); E66.9 Obesity, unspecified
CPT/HCPCS: 80053; 83036; 84443

== ENCOUNTER 2024-02-08 13:38 | Outpatient (REF) | payer MEDICARE, MEDICAID, SELFPAY ==
[2024-02-08 19:33] LABS: ALT 231 U/L (14-59); AST 167 U/L (15-37); Alkaline Phosphatase 93 U/L (46-116); Bilirubin, Direct 0.1 mg/dL (0.0-0.2); Bilirubin, Total 0.32 mg/dL (0.2-1.0); Total Protein 7.5 g/dL (6.4-8.2)
== END 2024-02-08 13:39 | disposition home or self-care (01) ==
LOC: NCHCN 13:38
PROVIDERS: PCP Nurse Practitioner Family; Visit Provider Nurse Practitioner Family
DX: R74.01 Elevation of levels of liver transaminase levels (principal)
CPT/HCPCS: 80076

== ENCOUNTER 2024-02-17 01:11 | Outpatient (CLI) | payer MEDICARE, MEDICAID, SELFPAY ==
--- NOTE | 2024-02-17 | DI.US_ITS ---
Exam(s) US ABDOMEN LIMITED EXAM: US ABDOMEN LIMITED CLINICAL HISTORY: Persistently elevated liver transaminase levels, R74.01 TECHNIQUE: Ultrasound abdomen performed using standard protocol. COMPARISON: No exams were available for comparison FINDINGS: The exam is somewhat limited by patient body habitus. LIVER: Normal size, 15 cm in length. Diffusely increased echogenicity and decreased through transmis cam consistent with [id number] hepatic steatosis.. No focal liver lesions are seen. GALLBLADDER: No evidence of cholelithiasis. No evidence of wall thickening. No pericholecystic fluid identified. CONLEY'S SIGN: Negative. BILIARY SYSTEM: No intrahepatic or extrahepatic biliary ductal dilation. Right kidney: No evidence of renal calculi. No evidence of hydronephrosis. No renal mass or cyst iden tified. PANCREAS: Normal where visualized. ABDOMINAL AORTA AND IVC: Visualized portions normal caliber. ASCITES: None seen. IMPRESSION: [id number] hepatic steatosis. DATA REPOSITORY:
== END 2024-02-17 01:31 ==
LOC: DI 01:12
PROVIDERS: PCP Nurse Practitioner Family; Visit Provider Nurse Practitioner Family
DX: R74.01 Elevation of levels of liver transaminase levels (principal)
CPT/HCPCS: 76705

== ENCOUNTER 2024-02-17 01:56 | Outpatient (CLI) | payer MEDICARE, MEDICAID, SELFPAY ==
[2024-02-17 09:02] LABS: Abs Immature Grans 0.01 10^3/uL (0.0-0.06); Absolute Basophil Count 0.04 10^3/uL (0.0-0.2); Absolute Eosinophil Count 0.18 10^3/uL (0.0-0.7); Absolute Lymphocyte Count 1.51 10^3/uL (1.2-3.4); Absolute Monocyte Count 0.36 10^3/uL (0.1-0.8); Absolute Neutrophil Count 2.49 10^3/uL (1.2-6.7); Basophils % 0.9 %; Eosinophils % 3.9 %; HCT 39.6 % (36.0-46.0); HGB 13.9 g/dL (11.2-15.7); Immature Grans % 0.2 %; Lymphocytes % 32.9 %; MCH 31.1 pg (27.0-33.0); MCHC 35.1 % (32.0-36.0); MCV 89 fL (80-95); Monocytes % 7.8 %; Neutrophils % 54.3 %; Platelet Count 255 10^3/uL (130-400); RBC 4.47 10^6/uL (3.93-5.22); RDW 11.9 % (11.7-14.6); RDW-SD 38.5 fL; WBC 4.59 10^3/uL (4.4-10.8)
[2024-02-17 20:12] LABS: Hepatitis A Antibody IgM Negative (Negative); Hepatitis B Core Antibody Negative (Negative); Hepatitis B surface Ag Negative (Negative); Hepatitis C Ab w Rflx HCV PCR Negative (Negative)
== END 2024-02-17 01:57 | disposition home or self-care (01) ==
LOC: LBO 01:56
PROVIDERS: PCP Nurse Practitioner Family; Visit Provider Nurse Practitioner Family
DX: R74.01 Elevation of levels of liver transaminase levels (principal)
CPT/HCPCS: 36415; 86704; 86709; 86803; 87340; 85025

== ENCOUNTER 2024-11-01 10:58 | Outpatient (REF) | payer MEDICARE, MEDICAID, SELFPAY ==
[2024-11-01 16:25] LABS: ALT 152 U/L (14-59); AST 97 U/L (15-37); Albumin 4.3 g/dL (3.4-5.0); Alkaline Phosphatase 86 U/L (46-116); Bilirubin, Direct 0.1 mg/dL (0.0-0.2); Bilirubin, Total 0.4 mg/dL (0.2-1.0); FREE T4 0.85 ng/dL (0.76-1.46); TSH 1.63 uIU/mL (0.36-3.74); Total Protein 7.3 g/dL (6.4-8.2)
== END 2024-11-01 10:59 | disposition home or self-care (01) ==
LOC: NCHCN 10:58
PROVIDERS: PCP Nurse Practitioner Family; Visit Provider Student in an Organized Health Care Education/Training Program
DX: R74.01 Elevation of levels of liver transaminase levels (principal)
CPT/HCPCS: 80076; 84439; 84443

== ENCOUNTER 2025-02-19 14:52 | Outpatient (REF) | payer MEDICARE, MEDICAID, SELFPAY ==
[2025-02-26 14:22] LABS: 2-OH-Ethyl-Flurazepam Negative ng/mL (Cutoff: 10); 7-NH-Clonazepam Negative ng/mL (Cutoff: 10); 7-NH-Flunitrazepam Negative ng/mL (Cutoff: 10); Alpha OH-Alprazolam Negative ng/mL (Cutoff: 10); Alpha-OH Midazolam Negative ng/mL (Cutoff: 10); Benzodiazepines Interpretation Positive.; Prazepam Negative ng/mL (Cutoff: 10); Zolpidem Carboxylic acid Negative ng/mL (Cutoff: 10)
== END 2025-02-19 14:53 | disposition home or self-care (01) ==
LOC: NCHCN 14:52
PROVIDERS: PCP Nurse Practitioner Family; Visit Provider Student in an Organized Health Care Education/Training Program
DX: F90.9 Attention-deficit hyperactivity disorder, unspecified type (principal)
CPT/HCPCS: 80346